=== PATIENT | female | born 1950 | race Two or more races ===

== ENCOUNTER 2018-12-28 17:08 | Emergency (ER) | payer OTHER ==
[~2018-12-28] VITALS: Ht 152.4 cm; Wt 64.9 kg
== END 2018-12-28 18:45 | disposition home or self-care (01) ==
LOC: ER 17:08
DX: S00.03XA Contusion of scalp, initial encounter (principal); W01.198A Fall on same level from slipping, tripping and stumbling with subsequent striking against other object, initial encounter; Y93.89 Activity, other specified; Y92.012 Bathroom of single-family (private) house as the place of occurrence of the external cause; Y99.8 Other external cause status